=== PATIENT | female | born 1990 | race Caucasian/White ===

== ENCOUNTER 2018-09-15 16:25 | Emergency (ER) | payer OTHER ==
[2018-09-15 17:14] LABS: Absolute Lymphocytes (CBC) 1.8 K/uL (0.7-4.9); Absolute Monocytes 0.7 K/uL (0.1-1.3); Absolute Neutrophil 6.1 K/uL (1.8-8.0); Basophils % 0.5 % (0-1.3); Hematocrit 40.6 % (36.0-45.0); Lymphocytes % 20.4 % (15.3-44.8); MCH 29.4 pg (27.0-35.0); MCV 86.9 fL (80-100); MPV 9.1 fL (7.6-11.3); Monocytes % 7.6 % (3.3-12.3); RBC Red Blood Cell Count 4.68 M/uL (3.86-4.86)
--- NOTE | 2018-09-15 17:24 | RAD REPORT ---
EXAM DESCRIPTION: CT - Stone Protocol - 09/15/2018 5:10 pm CLINICAL HISTORY: Abdominal pain. Dysuria COMPARISON: None. TECHNIQUE: Computed axial tomography of the abdomen pelvis was obtained without oral or IV contrast. Lack of IV and oral contrast limits evaluation of solid organs, bowel, and vessels. Coronal reformat casey images were obtained and reviewed. All CT scans are performed using dose optimization technique as appropriate and may include automated exposure control or mA/KV adjustment according to patient size. FINDINGS: A 6 millimeter calculus present in the right kidney Hounsfield units 1499 hydronephrosis i s not seen. 1 centimeter calculus is present within the left renal pelvis Hounsfield unit 1316. Tiny additional l eft renal calculus seen extrarenal pelvis is seen. Hydronephrosis is not noted. An ureteral calculus is not noted. A bladder calculus is not present. The liver, spleen, pancreas and adrenals appear grossly normal There is no evidence of diverticulitis. The appendix appears normal Small umbilical hernia is present. Gallbladder has been removed IMPRESSION: Bilateral nonobstructing renal calculi
[2018-09-15 17:31] LABS: BUN Blood Urea Nitrogen 15 mg/dL (7-18); Bicarbonate 24 mmol/L (21-32); Glucose Level 81 mg/dL (74-106); Potassium 3.9 mmol/L (3.5-5.1); Sodium Level 138 mmol/L (136-145)
[2018-09-15 17:32] LABS: Urine Bacteria 20-50 /HPF (<20); Urine Culture Reflex Order REFLEXED; Urine Mucus LIGHT /HPF (NONE SEEN); Urine RBC TNTC /HPF (NONE SEEN)
--- NOTE | 2018-09-15 17:36 | ER ---
Nurse's Notes [facility] Name: Nohemi Garcia Age: 27 yrs Sex: Female : 1990 Arrival Date: 09/15/2018 Time: 16:27 Bed 20 Private MD: Diagnosis: Hematuria;Calculus of kidney Presentation: 09/15 16:37 Presenting complaint: Patient states: Back pain, dysuria, and urinary frequency for the aj1 past 3 days. Denies fever. Transition of care: patient was not received from another setting of care. Onset of symptoms was September 12, 2018. Risk Assessment: Do you want to hurt yourself or someone else? Patient reports no desire to harm self or others. Initial Sepsis Screen: Does the patient meet any 2 criteria? No. Patient's initial sepsis screen is negative. Does the patient have a suspected source of infection? Yes: Dysuria/Frequency/Urgency/UTI. Care prior to arrival: None. 16:37 Method Of Arrival: Ambulatory aj1 16:37 Acuity: RANJANA 3 aj1 Triage Assessment: 16:39 General: Appears in no apparent distress. uncomfortable, Behavior is calm, cooperative, aj1 appropriate for age. Pain: Complains of pain in left low back Pain currently is 10 out of 10 on a pain scale. Neuro: Level of Consciousness is awake, alert, obeys commands. Cardiovascular: Patient's skin is warm and dry. Respiratory: Airway is patent Respiratory effort is even, unlabored, Respiratory pattern is regular, symmetrical. 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 - Social history:: Smoking status: Smoking status: Patient/guardian denies using tobacco. - Ebola Screening: : Patient denies travel to an Ebola-affected area in the 21 days before illness onset. Screenin:00 Abuse screen: Denies threats or abuse. Denies injuries from another. Nutritional ph screening: No deficits noted. Tuberculosis screening: No symptoms or risk factors identified. Fall Risk None identified. Assessment: 17:00 General: Appears in no apparent distress. uncomfortable, Behavior is calm, cooperative, ph appropriate for age, Denies fever, feeling ill. Pain: Complains of pain in left flank and left low back. Neuro: Level of Consciousness is awake, alert, obeys commands, Oriented to person, place, time, situation. Cardiovascular: Capillary refill < 3 seconds in bilateral fingers Patient's skin is warm and dry. Respiratory: Airway is patent Respiratory effort is even, unlabored, Respiratory pattern is regular, symmetrical. GI: Patient currently denies diarrhea, nausea, vomiting. : Reports burning with urination, pain in left flank(s), in lower back. Derm: Skin is intact, is healthy with good turgor, Skin is pink, warm \T\ dry. Musculoskeletal: Circulation, motion, and sensation intact. Range of motion: intact in all extremities. Vital Signs: 16:39 BP 122 / 75; Pulse 80; Resp 18; Temp 97.8; Pulse Ox 100% on R/A; Weight 81.65 kg (R); aj1 Height 5 ft. 7 in. (170.18 cm) (R); Pain 10/10; 17:45 BP 119 / 69; Pulse 75; Resp 18; Temp 97.6; Pulse Ox 99% on R/A; ph 16:39 Body Mass Index 28.19 (81.65 kg, 170.18 cm) aj1 ED Course: 16:27 Patient arrived in ED. as 16:38 Triage completed. aj1 16:39 Arm band placed on Patient placed in an exam room. aj1 16:42 [facility]-C [facility]. kb 16:42 Frankie Muñoz MD is Attending Physician. kb 16:43 Kate Dumont, SHEKHAR is Primary Nurse. ph 16:55 Missed attempt(s): 22 gauge in left wrist. Bleeding controlled, band aid applied, jp3 catheter tip intact. 16:[address] via wheelchair. sj 17:00 Initial lab(s) drawn, by me, sent to lab. Urine collected:. Inserted saline lock: 22 jp3 gauge in right forearm, using aseptic technique. ,using aseptic technique. rainbow was collected Blood collected. 17:08 Urine --Ancillary (enter results) Sent. jp3 17:08 Urine Dipstick--Ancillary (enter results) Sent. jp3 17:08 Basic Metabolic Panel Sent. jp3 17:09 CT completed. Patient moved back from CT. 2 17:09 Bed in low position. Call light in reach. Side rails up X 1. Pulse ox on. NIBP on. jp3 17:09 CBC with Diff Sent. jp3 17:09 Urine Microscopic Only Sent. jp3 17:10 CT Stone Protocol In Process Unspecified. EDMS 17:57 No provider procedures requiring assistance completed. IV discontinued, intact, ph bleeding controlled, No redness/swelling at site. Pressure dressing applied. Administered Medications: 17:49 Drug: TORadol 30 mg Route: IVP; Site: right forearm; ph 17:55 Follow up: Response: No adverse reaction; Medication administered at discharge. ph Outcome: 17:36 Discharge ordered by . kb 17:57 Patient left the ED. ph 17:57 Discharged to home ambulatory. ph 17:57 Condition: good 17:57 Discharge instructions given to patient, Instructed on discharge instructions, follow up and referral plans. medication usage, Demonstrated understanding of instructions, follow-up care, medications, Prescriptions given X 1. Signatures: Dispatcher [employer] EDNH Rocio Tobar, PARANORMAL INVESTIGATOR-C PARANORMAL INVESTIGATOR-Jasmine Tinajero RN RN Rosario Brenner Amelia as Hall, Patricia, SHEKHAR RN Valentine Nice 2 Nelson Cruz jp3
--- NOTE | 2018-09-15 17:37 | EDPHYS ---
Physician Documentation [facility] Name: Nohemi Garcia Age: 27 yrs Sex: Female : 1990 Arrival Date: 09/15/2018 Time: 16:27 Bed 20 Private MD: ED Physician Frankie Muñoz HPI: 09/15 17:28 This 27 yrs old Female presents to ER via Ambulatory with complaints of Flank kb Pain. 17:28 The patient complains of pain in the left flank. The pain does not radiate. Onset: The kb symptoms/episode began/occurred 2 day(s) ago, and became worse today. Modifying factors: The symptoms are alleviated by nothing. the symptoms are aggravated by palpation/percussion. Associated signs and symptoms: The patient has no apparent associated signs or symptoms. Severity of pain: At its worst the pain was moderate in the emergency department the pain is unchanged. The patient has experienced similar episodes in the past, a few times. The patient has not recently seen a physician. 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 - Social history:: Smoking status: Smoking status: Patient/guardian denies using tobacco. - Ebola Screening: : Patient denies travel to an Ebola-affected area in the 21 days before illness onset. ROS: 17:00 Constitutional: Negative for fever, chills, and weight loss, Cardiovascular: Negative kb for chest pain, palpitations, and edema, Respiratory: Negative for shortness of breath, cough, wheezing, and pleuritic chest pain, Abdomen/GI: Negative for abdominal pain, nausea, vomiting, diarrhea, and constipation, MS/Extremity: Negative for injury and deformity, Skin: Negative for injury, rash, and discoloration, Neuro: Negative for headache, weakness, numbness, tingling, and seizure. 17:00 : Positive for flank pain. Exam: 17:00 Constitutional: This is a well developed, well nourished patient who is awake, alert, kb and in no acute distress. Head/Face: Normocephalic, atraumatic. Chest/axilla: Normal chest wall appearance and motion. Nontender with no deformity. No lesions are appreciated. Cardiovascular: Regular rate and rhythm with a normal S1 and S2. No gallops, murmurs, or rubs. Normal PMI, no JVD. No pulse deficits. Respiratory: Lungs have equal breath sounds bilaterally, clear to auscultation and percussion. No rales, rhonchi or wheezes noted. No increased work of breathing, no retractions or nasal flaring. Abdomen/GI: Soft, non-tender, with normal bowel sounds. No distension or tympany. No guarding or rebound. No evidence of tenderness throughout. Skin: Warm, dry with normal turgor. Normal color with no rashes, no lesions, and no evidence of cellulitis. MS/ Extremity: Pulses equal, no cyanosis. Neurovascular intact. Full, normal range of motion. Neuro: Awake and alert, GCS 15, oriented to person, place, time, and situation. Cranial nerves II-XII grossly intact. Motor strength 5/5 in all extremities. Sensory grossly intact. Cerebellar exam normal. Normal gait. 17:00 Back: CVA tenderness, that is moderate, is noted on the left. Vital Signs: 16:39 BP 122 / 75; Pulse 80; Resp 18; Temp 97.8; Pulse Ox 100% on R/A; Weight 81.65 kg (R); aj1 Height 5 ft. 7 in. (170.18 cm) (R); Pain 10/10; 17:45 BP 119 / 69; Pulse 75; Resp 18; Temp 97.6; Pulse Ox 99% on R/A; ph 16:39 Body Mass Index 28.19 (81.65 kg, 170.18 cm) aj1 MDM: 16:42 Patient medically screened. kb 16:59 Data reviewed: vital signs, nurses notes. Data interpreted: Pulse oximetry: on room air kb is 100 %. Interpretation: normal. 17:36 Counseling: I had a detailed discussion with the patient and/or guardian regarding: the kb historical points, exam findings, and any diagnostic results supporting the discharge/admit diagnosis, lab results, radiology results, the need for outpatient follow up, a urologist, to return to the emergency department if symptoms worsen or persist or if there are any questions or concerns that arise at home. 09/15 16:43 Order name: Urine Microscopic Only; Complete Time: 17:33 kb 09/15 16:52 Order name: Basic Metabolic Panel; Complete Time: 17:33 kb 09/15 16:52 Order name: CBC with Diff; Complete Time: 17:25 kb 09/15 17:08 Order name: Urine Dipstick--Ancillary (enter results) bd 09/15 17:08 Order name: Urine --Ancillary (enter results) bd 09/15 17:33 Order name: Urine Culture [facility] 09/15 16:43 Order name: Urine Test (obtain specimen); Complete Time: 16:50 kb 09/15 16:43 Order name: Urine Dipstick-Ancillary (obtain specimen); Complete Time: 16:50 kb 09/15 16:52 Order name: IV Saline Lock; Complete Time: 17:09 kb 09/15 16:52 Order name: Labs collected and sent; Complete Time: 17:09 kb 09/15 16:52 Order name: CT Stone Protocol; Complete Time: 17:25 kb Administered Medications: 17:49 Drug: TORadol 30 mg Route: IVP; Site: right forearm; ph 17:55 Follow up: Response: No adverse reaction; Medication administered at discharge. ph Disposition: 09/15/18 17:36 Discharged to Home. Impression: Hematuria, Calculus of kidney. - Condition is Stable. - Discharge Instructions: Kidney Stones, [id number], Dietary Guidelines to Help Prevent Kidney Stones. - Prescriptions for Diclofenac Sodium 75 mg Oral Tablet, Delayed Release (E.C.) - take 1 tablet by ORAL route 2 times per day As needed; 30 tablet. - Medication Reconciliation Form, Thank You Letter, Antibiotic Education, Prescription Opioid Use form. - Follow up: Emergency Department; When: As needed; Reason: Worsening of condition. Follow up: Private Physician; When: 2 - 3 days; Reason: Recheck today's complaints, Continuance of care, Re-evaluation by your physician. Signatures: Dispatcher [employer] EDTN Rocio Tobar, Jasmine Hicks RN RN aj1 Kate Dumont RN RN ph Corrections: (The following items were deleted from the chart) 17:57 17:36 09/15/2018 17:36 Discharged to Home. Impression: Hematuria; Calculus of kidney. ph Condition is Stable. Forms are Medication Reconciliation Form, Thank You Letter, Antibiotic Education, Prescription Opioid Use. Follow up: Emergency Department; When: As needed; Reason: Worsening of condition. Follow up: Private Physician; When: 2 - 3 days; Reason: Recheck today's complaints, Continuance of care, Re-evaluation by your physician. kb
[2018-09-15 17:38] LABS: Urine Blood 2+ (NEG); Urine Glucose NEGATIVE (NEG); Urine Protein 1+ (NEG); Urine Specific Gravity >1.030 (1.005-1.030)
[2018-09-15] MEDS ORDERED: KETOROLAC 30 MG/ML INJ ONE (17:52)
== END 2018-09-15 17:57 | disposition home or self-care (01) ==
LOC: ER 16:25
DX: N20.0 Calculus of kidney (principal); Z85.43 Personal history of malignant neoplasm of ovary
CPT/HCPCS: 36415; 74176; 76377; 80048; 81003; 81015; 81025; 85025; 87086; 87088; 96374; 99284